=== PATIENT | male | born 1960 | race Caucasian/White ===

== ENCOUNTER 2021-02-03 07:29 | Observation (INO) | payer OTHER ==
[2021-02-01 15:06] LABS: BASOPHILS % 0.5 % (0.0-1.0); EOSINOPHILS # (AUTO) 0.1 (0.0-0.4); EOSINOPHILS % 0.9 % (0.0-6.0); HEMATOCRIT 41.5 % (38.2-49.6); HEMOGLOBIN 14.2 g/dL (14.0-18.0); LYMPHOCYTES # (AUTO) 1.1 (1.0-3.2); LYMPHOCYTES % 17.4 % (18.0-39.1); MEAN CORPUSCULAR HEMOGLOBIN 29.9 pg (28-32); MEAN CORPUSCULAR HGB CONC 34.2 g/dL (31-35); MEAN CORPUSCULAR VOLUME 87.4 fL (81-99); MONOCYTES # (AUTO) 0.4 (0.2-0.8); MONOCYTES % 6.4 % (4.4-11.3); NEUTROPHILS # (AUTO) 4.9 (2.1-6.9); NEUTROPHILS % 74.5 % (38.7-80.0); PLATELET COUNT 242 x10e3/uL (140-360); RED BLOOD COUNT 4.75 x10e6/uL (4.3-5.7); RED CELL DISTRIBUTION WIDTH 12.7 % (11.7-14.4)
[2021-02-01 15:15] LABS: INR 0.96; PROTHROMBIN TIME 13.3 seconds (11.9-14.5)
[2021-02-01 15:22] LABS: ANION GAP 15.4 mmol/L (8-16); BLOOD UREA NITROGEN 9 mg/dL (7-26); BUN/CREATININE RATIO 8 (6-25); CALCIUM 8.9 mg/dL (8.4-10.2); CARBON DIOXIDE 23 mmol/L (22-29); CHLORIDE 105 mmol/L (98-107); CREATININE, SERUM 1.07 mg/dL (0.72-1.25); EST GLOMERULAR FILTRATION RATE > 60 ML/MIN (60-); GLUCOSE 208 mg/dL (74-118); POTASSIUM 4.4 mmol/L (3.5-5.1); SODIUM 139 mmol/L (136-145)
[~2021-02-03] VITALS: Ht 185.4 cm; Wt 90.7 kg
[~2021-02-03 07:29] MED LIST: ACETAMINOPHEN 1000 MG/100 ML 100 ML IV ONE; IBUPROFEN 800MG/ 200ML 200 ML IV ONE; LIDOCAINE HCL (LTA) 4 ML SOLN ONE; METFORMIN HCL500 MG PO
[2021-02-03] MEDS ORDERED: CEFAZOLIN SOD 1 GM/NS 50ML 100 ML IV ONE (08:24)
[2021-02-03] MEDS ORDERED: LIDOCAINE 1% W/EPINEPHRINE 20 ML VIAL ONE (08:25)
[2021-02-03] MEDS ORDERED: VANCOMYCIN HCL 1 GM VIAL ONE (08:25)
[2021-02-03] MEDS ORDERED: THROMBIN FOR SOLN 5,000 UNIT VIAL ONE (08:26)
[2021-02-03] MEDS ORDERED: HYDROCODON-ACE1 EA12 PO (12:22)
[2021-02-03] MEDS ORDERED: CARISOPRODOL 350 MG TAB PO PRN (12:30)
[2021-02-03] MEDS ORDERED: ONDANSETRON HCL INJ 2MG/ML 2ML 2 MG/ML VIAL IV PRN (12:30)
[2021-02-03] MEDS ORDERED: CEPACOL SORE THROAT LOZENGES PO PRN (12:30)
[2021-02-03] MEDS ORDERED: MORPHINE SULFATE 5 MG/ML VIAL IM PRN (12:30)
[2021-02-03] MEDS ORDERED: PROMETHAZINE HCL (IM) 25 MG/ML VIAL IM PRN (12:30)
[2021-02-03] MEDS ORDERED: MAGNESIUM/ALUMINUM/SIMETHICONE 30 ML UDC PO PRN (12:30)
[2021-02-03] MEDS ORDERED: HYDROMORPHONE 2MG/ML 2 MG/ML ML IV PRN (12:30)
[2021-02-03] MEDS ORDERED: OXYCODONE/ACETAMINOPHEN 5-325 1 EACH TABLET PO PRN (12:30)
[2021-02-03] MEDS ORDERED: ACETAMINOPHEN 325 MG TAB PO PRN (12:30)
[2021-02-03] MEDS ORDERED: MIDAZOLAM HCL 2 MG/2 ML VIAL ONE (12:49)
[2021-02-03] MEDS ORDERED: FENTANYL CITRATE/PF 100MCG/2 ML INJ ONE (12:49)
[2021-02-03 13:19] VITALS: BP 150/76
[2021-02-03] MEDS: LACTATED RINGER'S 1,000 ML IV SCH ×2 (13:44→21:37)
[2021-02-03 13:49] VITALS: BP 150/76
[2021-02-03 15:51] VITALS: BP 142/73
[2021-02-03] MEDS ORDERED: SEVOFLURANE INHAL SOLN 250 ML PEN BTL ONE (16:47)
[2021-02-03] MEDS ORDERED: GLYCOPYRROLATE INJ 0.2 MG/ML VIAL ONE (16:47)
[2021-02-03] MEDS ORDERED: PROPOFOL IV EMULSION 10 MG/ML 20 ML VIAL ONE (16:47)
[2021-02-03] MEDS ORDERED: ONDANSETRON HCL INJ 2MG/ML 2ML 2 MG/ML VIAL ONE (16:47)
[2021-02-03] MEDS ORDERED: ROCURONIUM BROMIDE 10 MG/ML 5ML VIAL IV ONE (16:47)
[2021-02-03] MEDS ORDERED: LIDOCAINE HCL 2% LOCAL INJ 5 ML SDV VIAL INJ ONE (16:47)
[2021-02-03] MEDS ORDERED: DEXAMETHASONE SOD PHOS INJ 4 MG/ML VIAL ONE (16:47)
[2021-02-03] MEDS ORDERED: LIDOCAINE HCL 2% JELLY 5 ML TUBE ONE (16:47)
[2021-02-03] MEDS ORDERED: NEOSTIGMINE 1 MG/ML 10ML VIAL ONE (16:47)
[2021-02-03] MEDS: CEFAZOLIN SOD 1 GM/NS 50ML 50 ML IV SCH (18:28)
[2021-02-03 20:00] VITALS: BP 137/80
[2021-02-03 20:15] VITALS: BP 137/80
[2021-02-03] MEDS ORDERED: ZOLPIDEM TARTRATE 5 MG TAB PO PRN (21:00)
[2021-02-04] VITALS: BP 128/70
[2021-02-04] MEDS: CEFAZOLIN SOD 1 GM/NS 50ML 50 ML IV SCH ×2 (02:50→10:00)
[2021-02-04 04:00] VITALS: BP 126/74
[2021-02-04] MEDS: LACTATED RINGER'S 1,000 ML IV SCH (04:29)
[2021-02-04] MEDS ORDERED: METFORMIN HCL 500 MG TAB PO SCH (08:00)
[2021-02-04 08:01] VITALS: BP 130/71
[2021-02-04 08:37] VITALS: BP 130/71
== END 2021-02-04 10:35 | disposition home or self-care (01) ==
LOC: OR 07:29 → PACU V 12:21 → MED/SURG 13:22
PROVIDERS: ADMIT Neurological Surgery; ATTEND Neurological Surgery
DX: M50.122 Cervical disc disorder at C5-C6 level with radiculopathy (principal); E11.9 Type 2 diabetes mellitus without complications; Z79.84 Long term (current) use of oral hypoglycemic drugs; Z01.810 Encounter for preprocedural cardiovascular examination; Z01.812 Encounter for preprocedural laboratory examination; Z01.818 Encounter for other preprocedural examination; Z20.822 Contact with and (suspected) exposure to COVID-19
CPT/HCPCS: 20931; 22551; 22845; 36415 ×2; 71046; 72040; 80048; 82948; 85025; 85610; 85730; 86850; 86900; 88304; 88311; 93005; C1713 ×6; C1768; G0378 ×2; J0131; J0690 ×2; J1100; J2001 ×2; J2250; J2405; J2704; J2710; J3010; J3370; J7121; U0002; 77003

== ENCOUNTER → 2021-03-04 | Outpatient (CLI) | payer OTHER ==
[~2021-03-04] MED LIST changes: -ACETAMINOPHEN 1000 MG/100 ML 100 ML IV ONE; +HYDROCODON-ACE1 EA12 PO; -IBUPROFEN 800MG/ 200ML 200 ML IV ONE; -LIDOCAINE HCL (LTA) 4 ML SOLN ONE
== END ==
LOC: RAD 07:56
PROVIDERS: ATTEND Neurological Surgery
DX: M50.20 Other cervical disc displacement, unspecified cervical region (principal); M43.22 Fusion of spine, cervical region
CPT/HCPCS: 72052

== ENCOUNTER → 2022-05-30 | Outpatient (CLI) | payer OTHER | LOC: RAD 15:50 | PROVIDERS: ATTEND Neurological Surgery | DX: M50.20 Other cervical disc displacement, unspecified cervical region (principal); M43.22 Fusion of spine, cervical region | CPT/HCPCS: 72050 ==